=== PATIENT | male | born 1975 | race Caucasian/White ===

== ENCOUNTER 2025-04-29 23:27 | Inpatient (IN) | payer MEDICAID, SELFPAY ==
[2025-04-29 23:28] VITALS: BMI 24.1
[2025-04-30] VITALS (11 sets, daily range): BP systolic 93–141; BP diastolic 55–83; PULSE 76–105; RESP 18–97; TEMP 36.4–37.8; O2SAT 98; BMI 26.7
--- NOTE | 2025-04-30 00:32 | PC.NURSE ---
Pt did not answer when name was called and was not found outside.
--- NOTE | 2025-04-30 00:47 | EKG_ITS ---
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
--- NOTE | 2025-04-30 01:00 | XR_ITS ---
Examination: Duplex scan of the lower extremity, unilateral right Date and time of exam: April 30, 2025, 0126 hours INDICATIONS: Right leg redness swelling and pain beginning 5 days ago Technique: Duplex scan of the extremity veins using B-mode/grayscale imaging and Doppler spectral analysis and color flow Attention is directed to internal echogenicity, compression and augmentation involving these veins, color flow assessment, spectral analysis Findings: Major deep venous structures in the extremity demonstrate normal course and caliber. There is no evidence of deep vein thrombosis. Normal color flow and spectral analysis Impression: Negative for DVT.
[2025-04-30 01:14] LABS: Lactate (Lactic Acid) 3.0 mMol/L (0.4-2.0)
[2025-04-30 01:17] LABS: Basophils # (Auto) 0.0 Thou/mm3 (0.0-0.2); Basophils % (Auto) 0 % (0-2.5); Eosinophils # (Auto) 0.1 Thou/mm3 (0.0-0.5); Eosinophils % (Auto) 1 % (0-10); Hematocrit 45.1 % (41.0-53.0); Hemoglobin 14.9 g/dL (13.5-16.0); Immature Granulocytes Auto 0.06 Thou/mm3 (0.00-0.00); Lymphocytes # (Auto) 2.1 Thou/mm3 (1.0-4.8); Lymphocytes % (Auto) 20 % (10-50); Mean Corpuscular HGB Conc 33.0 g/dl (31.0-37.0); Mean Corpuscular Hemoglobin 28.4 pg (25.0-35.0); Mean Corpuscular Volume 86 fL (80-100); Monocytes # (Auto) 0.8 Thou/mm3 (0.0-0.8); Monocytes % (Auto) 7 % (0-12); Neutrophils # (Auto) 7.5 Thou/mm3 (1.8-7.7); Neutrophils % (Auto) 72 % (37-80); Nucleated Red Blood Cell # 0.00 Thou/mm3 (0.00-0.00); Nucleated Red Blood Cell % 0 /100 WBC (0); Platelet Count 184 Thou/mm3 (140-440); RDW Standard Deviation 41.2 fL (35.1-43.9); Red Blood Count 5.24 Miln/mm3 (4.50-5.90); White Blood Count 10.5 Thou/mm3 (3.8-10.6)
[2025-04-30] MEDS: PIPER/TAZO 3.375 GM PREMIX 3.375 GM/50 ML BAG IV ×3 (01:25→22:45)
[2025-04-30] MEDS: RINGERS LACTATED 1000 ML 1,000 ML 999 ML IV ×2 (01:26→10:54)
--- NOTE | 2025-04-30 01:35 | PD.EDEXREM ---
ED Extremity Problem RME/HPI General Chief complaint: Extremity Problem,Nontraumatic Stated complaint: RIGHT LEG WARM AND SWOLLEN Time Seen by Provider: 04/30/25 00:03 Arrival date/time: 04/29/25 23:27 RME / HPI RME / HPI Narrative: DR. TY MAIN ED EVALUATION: Patient presenting progressive painful swelling extending from the right foot to the medial thigh of several days duration. Reports subjective fever, denies chills, vomiting, or diarrhea. Patient reports that his dog had scratched his foot prior to onset of symptoms. Notes similar symptoms which resulted in sepsis. PMH: Recurrent cellulitis/Sepsis, HIV no longer under treatment, Anxiety, Depression, Methamphetamine use PSH: Non-contributory Allergies: NKDA Social: Denies illicit drug abuse, rare alcohol consumption, reduce tobacco use Related Data Home Medications ?Medication ?Instructions ?Recorded ?Confirmed gabapentin 300 mg tablet 300 mg PO QDAY 01/12/22 01/12/22 prazosin 1 mg capsule 1 mg PO QPM 01/12/22 01/12/22 risperidone 2 mg tablet 2 mg PO QDAY 01/12/22 01/12/22 sertraline 100 mg tablet 100 mg PO BID 01/12/22 01/12/22 Allergies Allergy/AdvReac Type Severity Reaction Status Date / Time No Known Allergies Allergy Unverified 03/23/23 11:35 Review of Systems Review of Systems Systems Reviewed: All systems reviewed, normal except as documented Past Medical History Past Medical History CARDIAC: Positive Cellulitis PSYCHO/SOCIAL: Positive Recreational Drug Use, Depression and Anxiety OTHER HISTORY: Positive Human Immunodeficiency Virus (HIV) Family History FAMILY HISTORY: Positive Family Psychiatric Problems and Family Cancer Surgical History SURGICAL: Positive Abdominal Surgery Social History SMOKING STATUS: Current every day smoker SUBSTANCE USE: methamphetamine ALCOHOL: Current ED Exam Narrative Physical exam: GEN. APPEARANCE: The patient is alert awake oriented X-3 under no distress, lying down comfortably, does not look ill/toxic. Patient has good eye contact. Patient is cooperative. Mildly tachycardic. VITALS: All vitals were reviewed and the pulse ox is 98%, which is normal according to my interpretation HEENT: Normocephalic, atraumatic and nontender. Pupils are equal and reactive. Oral mucosa is moist. NECK: Supple, nontender, no meningismus, no JVD. There is no thyromegaly and no lymphadenopathy. CHEST: Nontender on palpation no deformity and no crepitus. CARDIOVASCULAR: Mildly tachycardic, no murmur or gallop rub or extra beats. LUNGS: Clear to auscultation bilaterally with symmetrical chest rise. No laboring tachypnea or wheezing. No intercostal subcostal retraction. No rales and no rhonchi. ABDOMEN: Soft, flat, nontender to palpation, no guarding or rebound tenderness. There are no abnormal masses palpated. No pulsatile masses or bruits. Active and normal bowel sounds. EXTREMITIES: RLE: Patches of erythema with scattered violaceous hue extending from the right ankle to the medial thigh, 2+ circumferential edema extending from the right ankle to the knee, distal function intact. SKIN: Warm and dry, no rashes noted. MUSCULOSKELETAL: No lumbar or midline bony tenderness. There is no CVA tenderness. No paraspinal muscle spasm or tenderness. NEURO: Cranial nerves II through XII grossly intact. There are no focal neurologic deficits noted. GCS is 15 PSYCHIATRIC: Patient is in normal mood and affect, cooperative. LYMPHATICS: No major lymphadenopathy noted. Course Quality Measures none Orders Category Date Time Status COVID-19 Screening Questionnaire NOW Care 04/30/25 01:39 Active Beaming Inspector STAT Care 04/30/25 00:47 Active Continuous Pulse Oximetry STAT Care 04/30/25 00:47 Completed EKG (ED ONLY) *Do not use* NOW Care 04/30/25 00:47 Completed In and Out Catheter X1PRN Care 04/30/25 00:47 Completed Insert IV NOW Care 04/30/25 00:47 Active Strict Intake and Output Routine Care 04/30/25 00:47 Ordered EKG (ED Only) Stat Exams 04/30/25 00:47 Draft US venous doppler LE RT Stat Exams 04/30/25 01:00 Taken Blood Culture (Lab) Stat Lab 04/30/25 01:09 Received CBC Stat Lab 04/30/25 01:00 Completed Comprehensive Metabolic Panel Stat Lab 04/30/25 01:00 Completed Lactate (Lactic Acid) Stat Lab 04/30/25 01:00 Completed Lactic Acid, 3 HR Stat Lab 04/30/25 04:13 Ordered Procalcitonin Stat Lab 04/30/25 01:00 Completed Prothrombin Time with INR Stat Lab 04/30/25 01:00 Completed Urinalysis, C/S if Indicated Stat Lab 04/30/25 02:54 Completed Piper/Tazo 3.375 gm Premix [Zosyn] Med 04/30/25 00:47 Discontinued 3.375 gm in 50 ml IV X1 Ringers Lactated 1000 ml [Lactated Ringers] 1,000 ml Med 04/30/25 00:47 Discontinued IV 999 mls/hr Vancomycin Inj 1,000 mg Med 04/30/25 02:15 Discontinued Sodium Chloride 0.9% 250 ml [Ns] 250 ml IV X1 Vancomycin Pharmacy to Dose Med 04/30/25 09:00 Pending 1 each IV QDAY Vital Signs Vital signs: Vital Signs Temperature 98.5 F 04/30/25 00:39 Pulse Rate 105 H 04/30/25 00:39 Respiratory Rate 18 04/30/25 00:39 Blood Pressure 141/83 H 04/30/25 00:39 Pulse Oximetry (%) 98 04/30/25 00:39 Oxygen Delivery Method Room Air 04/30/25 00:39 Extremity Problem MDM Narrative MDM Narrative:: Scribe Attestation: IKinsey am scribing for and in the presence of Dr. Martinez. Provider Notation: Although this document has been carefully reviewed, there may still be some phonetic and other typographical errors. These errors are purely grammatical due to imperfections in the software program and should not be construed in any way to compromise the substance of the patient's medical care during this visit. Patient presenting progressive painful swelling extending from the right foot to the medial thigh of several days duration. Reports subjective fever, denies chills, vomiting, or diarrhea. Please see PE findings. Laboratory markers, including CBC and serum chemistries, demonstrated WBC of 10.5. Hemoglobin of 14.9 and platelet count of 184, no left shift or associated bandemia. Serum chemistries essentially unremarkable. UA demonstrated glucosuria and hematuria, although no bacteriuria. Patient received dual-ABX therapy and remained hemodynamically stable. Of concern is patient's immunocompromised status and rapidly progressive cellulitis. Hospitalist consulted for possible admission. Final diagnosis includes cellulitis of the RLE. Patient data External records reviewed:: [facility] previous records (Reviewed prior ED records from 03/23/23. Patient was seen for Cellulitis of right lower limb.) Clinical information provided by:: patient Social determinants that could affect healthcare access:: alcohol use (Methamphetamine use) Patient has the following chronic illnesses:: Cellulitis, HIV, Anxiety, Depression, Methamphetamine use How is presenting disease/condition affected by chronic disease/condition?: exacerbated by Evaluation data The following diagnostics were reviewed and interpreted by me:: lab results, radiology exam(s) and EKG tracing(s) (EKG at 01:09 shows normal sinus rhythm at 86, normal axis, no ventricular ectopy, no ST segment changes, per my interpretation.) Lab and/or radiology exams considered but not ordered:: None Interpretation Summary: RADIOLOGY Venous Doppler: Findings: Waite scale, color flow and spectral Doppler evaluation of the right lower extremity deep venous system was performed. Patient was tender to compression at the greater saphenous vein confluence. The common femoral, femoral, popliteal and calf veins are patent and compressible. Normal augmentation and respiratory variation are noted. There is no evidence of occlusive or nonocclusive thrombus. There are no fluid collections. Impression: No sonographic evidence of deep venous thrombosis in the right lower extremity. Medications / Prescriptions Medications or Prescriptions considered but not ordered:: None Medication administrations:: Medication Administration History Pharmacy Consult (Vancomycin Pharmacy To Dose 1 Each Each) 1 each IV QDAY [facility] Stop: 05/30/25 08:59 Discontinued Medications Lactated Ringer's (Lactated Ringers) 1,000 mls @ 999 mls/hr IV .Q1H1M ONE Stop: 04/30/25 01:47 Last Infusion: 04/30/25 02:50 Dose: Infused Documented By: Admin: 04/30/25 01:26 Dose: 999 mls/hr Documented By: DALTON Piperacillin/Tazobactam/Dextrose (Zosyn) 3.375 gm in 50 mls @ 100 mls/hr IV X1 ONE Stop: 04/30/25 01:16 Last Infusion: 04/30/25 01:55 Dose: Infused Documented By: Admin: 04/30/25 01:25 Dose: 100 mls/hr Documented By: DALTON Vancomycin HCl 1,000 mg/ (Sodium Chloride) 250 mls @ 120 mls/hr IV X1 ONE Stop: 04/30/25 04:19 Last Admin: 04/30/25 02:51 Dose: 120 mls/hr Documented By: DALTON See above if any Consultations Consultation(s) initiated? (list below): Yes Consultation #1 (Physician, Specialty, Details): Discussed with resident physician for admission. Reviewed the patient?s HPI, PMHx, lab and/or radiology results. Discussed treatment plan. Will consult an admission to the hospitalist. Time: 04:33 Diagnosis Extremity Problem Differential Diagnosis: gout, cellulitis, superficial thrombophlebitis, lower extremity edema and deep vein thrombosis of lower extremity Most likely diagnosis given after review of the tests above:: Cellulitis of RLE Admission Indicated Admission indicated?: indicated Explain why admission is indicated or not indicated:: Cellulitis of RLE Admission Request Was there a request for admission?: Yes Admission Attestation Admission request attestation: Discussed case with [] from Hospitalist service regarding admission. Discussed patients ED course, exam findings, labs, and radiology results. The Hospitalist [agrees,declines] to accept the patient for admission. Disposition Plan Disposition Plan: Admit Critical Care Time Critical Care Time Critical Care Time: No Discharge Plan Plan Patient Disposition: Admit Acute Care w/in Hospital Prescriptions/Referrals Prescriptions/Med Rec: No Action prazosin 1 mg Capsule 1 mg PO QPM sertraline 100 mg Tablet 100 mg PO BID risperidone 2 mg Tablet 2 mg PO QDAY gabapentin 300 mg Tablet 300 mg PO QDAY Referrals: No Primary/Family,Physician [Primary Care Provider] - In 1 week Problem List Clinical Impression: Cellulitis of right lower extremity Patient/Caregiver Discharge Instructions Print Language: Czech Stand Alone Forms: Mar[facility] Award Info., Patient Portal Info Letter
[2025-04-30 01:39] LABS: INR 1.0 (0.9-1.3); Prothrombin Time 10.8 Seconds (9.0-12.2)
[2025-04-30 01:47] LABS: Alanine Aminotransferase 21 U/L (10-49); Albumin, Serum 4.0 gm/dL (3.5-5.0); Albumin/Globulin Ratio 1.7 (1.2-2.2); Alkaline Phosphatase 64 U/L (46-116); Anion Gap 9 (7-16); Aspartate Amino Transferase 15 U/L (0-34); BUN/Creatinine Ratio 12 Ratio (12-20); Bilirubin,Total 0.5 mg/dL (0.3-1.2); Blood Urea Nitrogen 15 mg/dL (9-23); Calcium 8.7 mg/dL (8.3-10.6); Calcium (Corrected) 8.7 mg/dL (8.5-10.1); Carbon Dioxide 26.2 mMol/L (20.0-31.0); Chloride 101 mMol/L (98-107); Creatinine (Component) 1.3 mg/dL (0.6-1.3); Estimated Creatinine Clearance 71.6 mL/min (>60); Globulin 2.3 gm/dL (2.3-3.5); Glucose 261 mg/dL (74-106); Osmolality,Calculated 281 (275-295); Potassium 4.0 mMol/L (3.4-5.1); Procalcitonin 0.47 ng/ml (0.0-0.49); Sodium 136 mMol/L (136-145); Total Protein 6.3 gm/dL (5.7-8.2); eGFR > 60 See Note
--- NOTE | 2025-04-30 02:21 | PRELIM_ITS ---
Right lower extremity venous Doppler ultrasound. April 30, 2025 at 0126 hours Clinical history: Rule out deep vein thrombosis. Findings: Waite scale, color flow and spectral Doppler evaluation of the right lower extremity deep venous system was performed. Patient was tender to compression at the greater saphenous vein confluence. The common femoral, femoral, popliteal and calf veins are patent and compressible. Normal augmentation and respiratory variation are noted. There is no evidence of occlusive or nonocclusive thrombus. There are no fluid collections. Impression: No sonographic evidence of deep venous thrombosis in the right lower extremity. Report Electronically Signed By: Hudson Crain 04/30/2025 2:21:23 AM [EST]
[2025-04-30] MEDS: Vancomycin Inj 1,000 MG in SODIUM CHLORIDE 0.9% 250 ML 250 ML 120 MG IV (02:51)
[2025-04-30 03:09] LABS: Collection Type, Urine Clean Catch; Squamous Epithelial Cell,Urine 0 /hpf (0-5)
[2025-04-30 03:18] LABS: Bilirubin,Urine Negative (Negative); Blood,Urine 1+ (Negative); Clarity,Urine Clear (Clear/Hazy); Color,Urine Lt-Yellow (Lt Yel-Yel); Culture Indicated,Urine Not Indicated; Glucose, Urine 3+ (Negative); Ketones,Urine Negative (Negative); Leukocyte Esterase,Urine Negative (Negative); Nitrite,Urine Negative (Negative); PH,Urine 6.0 (5.0-7.0); Protein,Urine Negative (Neg - Trace); RBC,Urine 3 /hpf (0-3); Specific Gravity,Urine 1.016 (1.001-1.035); Urobilinogen,Urine Negative mg/dL (0.0-1.0); WBC,Urine < 1 /hpf (0-5)
[2025-04-30 03:19] LABS: Sperm,Urine Present
[2025-04-30 04:13] LABS: Reflex Lactate? Y
[2025-04-30 04:44] LABS: Lactic Acid, 3 HR 0.7 mMol/L (0.4-2.0)
--- NOTE | 2025-04-30 05:29 | ESHP_ITS ---
<Statement entered by Juan Cowan MD - 04/30/25 06:12> I have discussed and was present for the essential components of the history, physical examination, diagnosis, and treatment plan with the resident. I agree with the patient's care as documented by the resident and amended herein by me. Juan Cowan MD FACP. Documentation for date of: 04/30/25 HPI History of Present Illness History of present illness: 49-year-old male with a history of HIV (diagnosed 10 years ago, on Biktarvy, but takes it intermittently) presenting with worsening painful swelling that has extended from his right foot to the medial thigh over the past 3 days. He reports a subjective fever but denies chills, vomiting, or diarrhea. The patient mentions that the swelling began after being scratched by his friend's dog. The dog is vaccinated. The patient is unsure of his tetanus status, but he believes he is up-to-date with other vaccinations. He notes a history of similar symptoms, which previously resulted in sepsis. The patient was previously followed by Dr. Ferreira, though he has not seen him in several years. ED course: Initial vitals include T 98.5, BP 141/83, HR 105, RR 18, O2 sat 98% room air. CBC showed no elevation in WBC. CMP showed lactic acid 3 with repeat 0.7. LFTs within normal. Creatinine 1.3. Right extremity venous Doppler ultrasound showed no sonographic evidence of deep venous thrombosis. Past medical history: As stated above. Allergies: NKDA Family history: Noncontributory. Social history: Uses meth, according to the patient last used 1 year ago Patient admitted for cellulitis of right leg. Review of Systems Review of Systems Narrative Review of Systems: All systems reviewed negative unless stated otherwise above. Exam Vital Signs Temp Pulse Resp BP Pulse Ox O2 Del Method 98.6 F 87 26 H 126/74 98 Room Air 04/30/25 03:43 04/30/25 05:20 04/30/25 05:20 04/30/25 03:43 04/30/25 03:43 04/30/25 00:39 Narrative Exam General: AOx3, in mild distress, able to speak full sentences, Maltese-speaking HEENT: NC/AT, mucous membranes moist, bilateral sclera anicteric Cardiovascular: regular rate and rhythm, S1/S2 present, no murmurs appreciated Pulmonary: clear to auscultation bilaterally, no rales/rhonchi/wheezes Abdominal: soft, non-tender, non-distended, no rebound/guarding, normal bowel sounds present Musculoskeletal: Right lower extremity showed patches of erythema with scattered violaceous hue extending from the right ankle to the medial thigh, 2+ circumferential edema extending from the right ankle to the knee, distal function intact. Skin: warm and dry, intact, no rashes, Neuro: CN II-XII intact, no focal deficits Results: Labs 04/30/25 01:00 04/30/25 01:00 Labs: Short CBC 04/30/25 Range/Units 01:00 WBC 10.5 (3.8-10.6) Thou/mm3 Hgb 14.9 (13.5-16.0) g/dL Hct 45.1 (41.0-53.0) % Plt Count 184 (140-440) Thou/mm3 BMP 04/30/25 01:00 Sodium 136 Potassium 4.0 Chloride 101 Carbon Dioxide 26.2 BUN 15 Creatinine 1.3 Glucose 261 H Calcium 8.7 Liver Function 04/30/25 Range/Units 01:00 Total Bilirubin 0.5 (0.3-1.2) mg/dL AST 15 (0-34) U/L ALT 21 (10-49) U/L Alkaline Phosphatase 64 (46-116) U/L Albumin 4.0 (3.5-5.0) gm/dL Urine 04/30/25 Range/Units 02:54 Urine Color Lt-Yellow (Lt Yel-Yel) Urine Clarity Clear (Clear/Hazy) Urine pH 6.0 (5.0-7.0) Ur Specific Mazon 1.016 (1.001-1.035) Urine Protein Negative (Neg - Trace) Urine Glucose (UA) 3+ A (Negative) Quality Measures Quality Measures none Medications Home Medications and Allergies Home Medications ?Medication ?Instructions ?Recorded ?Confirmed ?Type gabapentin 300 mg tablet 300 mg PO QDAY 01/12/22 0809/30 History prazosin 1 mg capsule 1 mg PO QPM 01/12/22 2 History risperidone 2 mg tablet 2 mg PO QDAY 01/12/22 History sertraline 100 mg tablet 100 mg PO BID 01/12/2201/12 History Allergies Allergy/AdvReac Type Severity Reaction Status Date / Time No Known Allergies Allergy Unverified 03/23/23 11:35 Visit Medications Acetaminophen (Acetaminophen 325 Mg Tablet) 650 mg PO Q6H PRN PRN Reason: PAIN 1- 3 OR FEVER > 100.4 Stop: 05/30/25 05:06 Doxycycline Hyclate (Doxycycline 100 Mg Tablet) 100 mg PO BID [facility] Stop: 05/07/25 08:59 Heparin Sodium (Porcine) (Heparin Sod Inj 5000 Unit/Ml Vial) 5,000 unit SC Q8HR TERESO Stop: 05/14/25 05:59 Morphine Sulfate (Morphine Sulf Inj 4 Mg/Ml Vial) 2 mg IVP Q4HR PRN PRN Reason: PAIN SCALE 7-10 (Severe Stop: 05/05/25 05:06 Ondansetron HCl (Ondansetron Inj 2 Mg/Ml Inj 2 Ml) 4 mg IVP Q6H PRN; Protocol PRN Reason: NAUSEA OR VOMITING Stop: 05/30/25 05:06 Pharmacy Consult (Vancomycin Pharmacy To Dose 1 Each Each) 1 each IV QDAY [facility] Stop: 05/30/25 08:59 Sennosides (Senna Tablet) 1 tab PO QDAY PRN; Protocol PRN Reason: constipation Stop: 05/30/25 05:06 Discontinued Medications Lactated Ringer's (Lactated Ringers) 1,000 mls @ 999 mls/hr IV .Q1H1M ONE Stop: 04/30/25 01:47 Last Infusion: 04/30/25 02:50 Dose: Infused Piperacillin/Tazobactam/Dextrose (Zosyn) 3.375 gm in 50 mls @ 100 mls/hr IV X1 ONE Stop: 04/30/25 01:16 Last Infusion: 04/30/25 01:55 Dose: Infused Vancomycin HCl 1,000 mg/ (Sodium Chloride) 250 mls @ 120 mls/hr IV X1 ONE Stop: 04/30/25 04:19 Last Admin: 04/30/25 02:51 Dose: 120 mls/hr Assessment & Plan Plan 49-year-old male with a history of HIV (diagnosed 10 years ago, on Biktarvy, but takes it intermittently) presenting with worsening painful swelling that has extended from his right foot to the medial thigh over the past 3 days. Patient admitted for cellulitis of right leg. #Cellulitis, right leg #History of HIV, active Presenting with worsening painful swelling that has extended from his right foot to the medial thigh over the past 3 days. Patient reports a subjective fever but denies chills, vomiting, or diarrhea. Patient mentions swelling began after being scratched by his friend's dog. The dog is vaccinated. Patient is unsure of his tetanus status, but he believes he is up-to-date with other vaccinations. On exam right lower extremity showed patches of erythema with scattered violaceous hue extending from the right ankle to the medial thigh, 2+ circumferential edema extending from the right ankle to the knee, distal function intact. Afebrile No WBC elevation In ED patient received Zosyn 3.375 g IV and vancomycin IV x 1 Plan ? Started cefazolin 1 g IV every 8 hours ? Follow-up blood cultures ? Follow-up ESR, CRP ? HIV viral load ordered, send out ? Day team to consider consulting Dr Lane for further recommendation Health Maintenance: Diet: Regular GI prophylaxis: None DVT prophylaxis: Heparin 5000u SC every 8 hours Antibiotics: Cefazolin 1 g IV every 8 hours CODE STATUS: [facility] with my attending Dr. Cowan, and senior resident, Dr. Jonah Thrasher MD PGY-1
[2025-04-30] MEDS: HEPARIN SOD INJ 5000 UNIT/ML VIAL SC ×2 (06:12→18:15)
[2025-04-30] MEDS: ceFAZolin/D5W 1 GM IVPB 1 GM/50 ML BAG IV (06:12)
[2025-04-30 06:28] LABS: C-Reactive Protein 15.8 mg/dL (0.0-0.9)
[2025-04-30 07:02] LABS: Sed Rate (ESR) 30 mm/hr (0-20)
[2025-04-30] MEDS: ACETAMINOPHEN 325 MG TABLET 650 MG PO (07:33)
[2025-04-30] MEDS: VANCOMYCIN/NS 750 MG IVPB 750 MG/150 ML BAG 120 MG IV ×2 (09:07→21:20)
[2025-04-30] MEDS: PIPER/TAZO INJ 4.5 GM in SODIUM CHLORIDE 0.9% (POP) 100 ML IV (11:37)
[2025-04-30 12:01] LABS: Amphetamine/Methamp Scrn,U Positive (Negative); Barbiturate Screen,Urine Negative (Negative); Benzodiazepines Screen,Urine Negative (Negative); Benzoylecgonine Screen, Ur Negative (Negative); Fentanyl Screen,Urine Negative (Negative); Opiate Screen,Urine Negative (Negative); THC Screen,Urine Negative (Negative)
[2025-04-30 12:38] LABS: HIV 1/2 Confirmation* See Sep Rpt
[2025-04-30 12:58] LABS: Hepatitis A Antibody IgM Non Reactive (Non React); Hepatitis B Core Antibody IgM Non Reactive (Non React); Hepatitis B Surface Antigen Non Reactive (Non React); Hepatitis C Antibody Non Reactive (Non React)
--- NOTE | 2025-04-30 13:40 | PC.SS ---
SS met with patient regarding his d/c plan. Pt is alert/oriented. Pt was admitted for Cellulitis. Pt confirmed demographic and contact information is correct on facesheet. Pt states he is homeless and resides in his car. Pt ambulates independently without assistance or DME. Pt is ok with all ADLs. Patient?s pharmacy of choice is [facility] on [address]. Pt named hsi sister, Wendy Beasley medical decision maker if he is unable. Pt states he is in the process of transitioning his health insurance from out of the area to [facility]. Pt states he is not diabetic and is not on dialysis. SS spoke to pt about homeless shelters in the area ([facility]) and pt is receptive to community resources. D/C plan: [facility] Next of Kin: Wendy Beasley, sister, phone# [phone] PCP: Dr. Trotter from [facility] in [facility]. Address: Correct on facesheet
[2025-04-30] MEDS: BIKTARVY 50-200-25 MG PO (15:59)
--- NOTE | 2025-04-30 16:49 | ESPR_ITS ---
<Statement entered by Atul Manuel MD - 05/02/25 18:09> Patient was seen and examined at bedside. I agree on the assessment and plan on this note as documented by resident Dr Michael Aldana DO PGY1. 49-year-old male with past medical history as below admitted for right leg cellulitis does have history of HIV, patient reports noncompliance with Biktarvy, antibiotic treatment regimen was changed to vancomycin and Zosyn for broader coverage due to underlying extensive cellulitis, will consult infectious disease specialist Dr. Ferreira will obtain CT scan of the right leg to assess for any deep abscess/bone involvement. Case discussed with attending Dr. Abdon Manuel MD PGY-2 Documentation for date of: 04/30/25 Subjective Subjective Interval history: Patient was seen and examined at bedside. No acute events took place overnight. While patient states that he took Biktarvy this morning, he also says that he took it only once during the past month, and for a total of nearly 30 days during the past year for issues with insurance coverage, provider availability, and homelessness. Patient admits to subjective fevers before ED presentation. He had temperature 100 F this morning for which he received Tylenol 650 mg. Right leg despite being erythematous and edematous, patient does not express to be in pain at. He states that his symptoms began 3 days ago and coincided with a scratch from a friend's dog. He also has had cellulitis 3 times before, the latest episode was triggered by a cat scratch. Exam Vital Signs Temp Pulse Resp BP Pulse Ox O2 Del Method 97.6 F 82 18 93/55 L 98 Room Air 04/30/25 16:00 04/30/25 16:00 04/30/25 16:00 04/30/25 16:00 04/30/25 16:04/30/25 16:00 Narrative Exam General: AOx3, in mild distress, able to speak full sentences, [place]-speaking HEENT: NC/AT, mucous membranes moist, bilateral sclera anicteric Cardiovascular: regular rate and rhythm, S1/S2 present, no murmurs appreciated Pulmonary: clear to auscultation bilaterally, no rales/rhonchi/wheezes Abdominal: soft, non-tender, non-distended, no rebound/guarding, normal bowel sounds present Musculoskeletal: Right lower extremity showed patches of erythema with scattered violaceous hue extending from the right ankle to the medial thigh, 2+ circumferential edema extending from the right ankle to the knee, distal function intact. Skin: warm and dry, intact, no rashes, Neuro: CN II-XII intact, no focal deficits Objective Labs 05/01/25 04:30 05/01/25 04:30 Labs: Laboratory Results - last 24 hr 04/30/25 04/30/25 04/30/25 01:00 02:54 04:35 WBC 10.5 RBC 5.24 Hgb 14.9 Hct 45.1 MCV 86 MCH 28.4 MCHC 33.0 RDW Std Deviation 41.2 Plt Count 184 Neut % (Auto) 72 Lymph % (Auto) 20 [place] % (Auto) 7 Eos % (Auto) 1 Baso % (Auto) 0 Neut # (Auto) 7.5 Lymph # (Auto) 2.1 [place] # (Auto) 0.8 Eos # (Auto) 0.1 Baso # (Auto) 0.0 Immature Gran # (Auto) 0.06 H Absolute Nucleated RBC 0.00 Immature Gran % 1 H Nucleated RBC % 0 ESR 30 H PT 10.8 INR 1.0 Sodium 136 Potassium 4.0 Chloride 101 Carbon Dioxide 26.2 Anion Gap 9 BUN 15 Creatinine 1.3 Estim Creat Clear Calc 71.6 eGFR > 60 BUN/Creatinine Ratio 12 Glucose 261 H Calculated Osmolality 281 Lactic Acid 3.0 H 0.7 Calcium 8.7 Corrected Calcium 8.7 Total Bilirubin 0.5 AST 15 ALT 21 Alkaline Phosphatase 64 C-Reactive Prot, Quant 15.8 H Total Protein 6.3 Albumin 4.0 Globulin 2.3 Albumin/Globulin Ratio 1.7 Procalcitonin 0.47 Ur Collection Type Clean Catch Urine Color Lt-Yellow Urine Clarity Clear Urine pH 6.0 Ur Specific [employer] 1.016 Urine Protein Negative Urine Glucose (UA) 3+ A Urine Ketones Negative Urine Blood 1+ A Urine Nitrite Negative Urine Bilirubin Negative Urine Urobilinogen (Auto) Negative Ur Leukocyte Esterase Negative Urine RBC 3 Urine WBC < 1 Ur Squamous Epith Cells 0 Urine Bacteria None Urine Sperm Present A Ur Culture Indicated? Not Indicated Urine Opiates Screen Urine Fentanyl Screen Ur Barbiturates Screen U Amphetamin/Meth Scrn U Benzodiazepines Scrn U Cocaine Metab Screen U Marijuana (THC) Screen Hepatitis A IgM Ab Hep Bs Antigen Hep B Core IgM Ab Hepatitis C Antibody HIV 1&2 Antibody Rapid 04/30/25 04/30/25 11:00 11:25 WBC RBC Hgb Hct MCV MCH MCHC RDW Std Deviation Plt Count Neut % (Auto) Lymph % (Auto) [place] % (Auto) Eos % (Auto) Baso % (Auto) Neut # (Auto) Lymph # (Auto) [place] # (Auto) Eos # (Auto) Baso # (Auto) Immature Gran # (Auto) Absolute Nucleated RBC Immature Gran % Nucleated RBC % ESR PT INR Sodium Potassium Chloride Carbon Dioxide Anion Gap BUN Creatinine Estim Creat Clear Calc eGFR BUN/Creatinine Ratio Glucose Calculated Osmolality Lactic Acid Calcium Corrected Calcium Total Bilirubin AST ALT Alkaline Phosphatase C-Reactive Prot, Quant Total Protein Albumin Globulin Albumin/Globulin Ratio Procalcitonin Ur Collection Type Urine Color Urine Clarity Urine pH Ur Specific [employer] Urine Protein Urine Glucose (UA) Urine Ketones Urine Blood Urine Nitrite Urine Bilirubin Urine Urobilinogen (Auto) Ur Leukocyte Esterase Urine RBC Urine WBC Ur Squamous Epith Cells Urine Bacteria Urine Sperm Ur Culture Indicated? Urine Opiates Screen Negative Urine Fentanyl Screen Negative Ur Barbiturates Screen Negative U Amphetamin/Meth Scrn Positive A U Benzodiazepines Scrn Negative U Cocaine Metab Screen Negative U Marijuana (THC) Screen Negative Hepatitis A IgM Ab Non Reactive Hep Bs Antigen Non Reactive Hep B Core IgM Ab Non Reactive Hepatitis C Antibody Non Reactive HIV 1&2 Antibody Rapid See Comment Quality Measures Quality Measures none Assessment & Plan Assessment Current Active Medications: Generic Name Dose Route Start Last Admin Trade Name Freq PRN Reason Stop Dose Admin Acetaminophen 650 mg 04/30/25 05:07 04/30/25 07:33 Acetaminophen 325 Mg Tablet PO 05/30/25 05:06 650 mg Q6H PRN Administration PAIN 1- 3 OR FEVER > 100.4 Biktarvy 50-200-25 0 ea 04/30/25 15:15 04/30/25 15:59 Mg PO 05/30/25 08:59 1 tablet DAILY TERESO Administration Heparin Sodium (Porcine) 5,000 unit 04/30/25 18:00 Heparin Sod Inj 5000 Unit/Ml Vial SC 05/14/25 17:59 Q12HR TERESO Vancomycin/Sodium Chloride 750 mg in 150 mls @ 120 mls/hr 04/30/25 10:00 04/30/25 09:07 Vancomycin/Ns 750 Mg Ivpb IV 05/07/25 09:59 120 mls/hr BID@1000,2200 TERESO Administration Piperacillin/Tazobactam/Dextrose 3.375 gm in 50 mls @ 12.5 mls/hr 04/30/25 14:00 04/30/25 14:27 Zosyn IV 05/07/25 13:59 12.5 mls/hr Q8HR TERESO Administration Protocol Morphine Sulfate 2 mg 04/30/25 05:07 Morphine Sulf Inj 4 Mg/Ml Vial IVP 05/05/25 05:06 Q4HR PRN PAIN SCALE 7-10 (Severe Ondansetron HCl 4 mg 04/30/25 05:07 Ondansetron Inj 2 Mg/Ml Inj 2 Ml IVP 05/30/25 05:06 Q6H PRN NAUSEA OR VOMITING Protocol Pharmacy Consult 1 each 04/30/25 09:00 Vancomycin Pharmacy To Dose 1 Each Each IV 05/30/25 08:59 QDAY PRN CONSULT Sennosides 1 tab 04/30/25 05:07 Senna Tablet PO 05/30/25 05:06 QDAY PRN constipation Protocol Plan 49-year-old male with a history of HIV (diagnosed 10 years ago, on Biktarvy, but takes it intermittently) presenting with worsening painful swelling that has extended from his right foot to the medial thigh over the past 3 days. Patient admitted for cellulitis of right leg. #Cellulitis, right leg #History of HIV, active Presenting with worsening painful swelling that has extended from his right foot to the medial thigh over the past 3 days. Patient reports a subjective fever but denies chills, vomiting, or diarrhea. Patient mentions swelling began after being scratched by his friend's dog. The dog is vaccinated. Patient is unsure of his tetanus status, but he believes he is up-to-date with other vaccinations. On exam right lower extremity showed patches of erythema with scattered violaceous hue extending from the right ankle to the medial thigh, 2+ circumferential edema extending from the right ankle to the knee, distal function intact. Afebrile No WBC elevation In ED patient received Zosyn 3.375 g IV and vancomycin IV x 1 PT 10.8, INR 1.0 WNL. Hep A IgM Ab, Hep B surface antigen and core IgM antibody, and Hep C all non reactive. Plan ? Switched choice of antibiotics to vancomycin dosed by pharmacy and Zosyn IV 3.375g ? Follow-up blood cultures ? Follow-up ESR, CRP ? HIV viral load ordered, send out ? Day team to consider consulting Dr Lane for further recommendation Health Maintenance: Diet: Regular GI prophylaxis: None DVT prophylaxis: Heparin 5000u SC every 12 hours Antibiotics: Cefazolin 1 g IV every 8 hours CODE STATUS: Full Disposition: [facility] This case was discussed with my attending physician, Dr. Leonardo, and senior resident, Dr Manuel. Michael Aldana, DO PGY I Disclaimer: This note was dictated by speech recognition. Minor errors in carpet sewing machine operator may be present due to voice recognition software. Attending Provider Attestation/Addendum I have seen and examined the patient. I was physically present for the vines portions of the services provided including history, physical exam, diagnosis, treatment plans and orders. I agree with assessment and plan of care as documented by residents. Even though this this note was carefully revised there may still be minor errors in carpet sewing machine operator due to voice recognition software. Abdon Leonardo MD
--- NOTE | 2025-04-30 16:50 | PC.NURSE ---
pt home medication Biktarvy sent to pharmacy to be verified to be administered to pt during hospital stay
--- NOTE | 2025-04-30 17:33 | XR_ITS ---
Examination: CT right lower extremity with intravenous contrast, 2-D sagittal reconstructions. 2-D coronal reconstructions. 3-D reconstructions. Date and time of exam: April 30, 2025, 1727 hours INDICATIONS: Right lower leg redness swelling and pain beginning 1 week ago CTDI: vol (mGy): 11.1 DLP: (mGycm): 326 Technique: Multiple 1.25 mm axial sections of the right lower extremity with 60 cc Isovue-370 have been obtained. 2-D sagittal and coronal reconstructions have been obtained. 3-D reconstructions have been obtained. Low dose protocols were performed. One or more of the following dose reduction techniques were used; automated exposure control, adjustment of the mA and/or KV according to patient size, use of iterative reconstruction technique. Findings: Inflammatory response around right groin lymph nodes extending to the skin in the upper anterior thigh Cellulitis pattern extends along the medial thigh and involves the lateral lower leg predominantly with skin thickening No abscess No cortical bone destruction involving femur tibia fibula or bones of the foot Right common femoral superficial femoral popliteal arteries intact as well as trifurcation arteries below the knee No filling defects in the deep venous system noted IMPRESSION: Cellulitis in the right groin, medial thigh and lateral lower leg as above most severe lateral lower leg No soft tissue abscess Negative for osteomyelitis
[2025-04-30] MEDS: MORPHINE SULF INJ 4 MG/ML VIAL 2 MG IVP (23:58)
[2025-05-01] VITALS: BP 113/62; PULSE 83; RESP 19; TEMP 36.5; O2SAT 98
[2025-05-01 04:00] VITALS: BP 111/55; PULSE 76; RESP 19; TEMP 36.1; O2SAT 98
[2025-05-01] MEDS: PIPER/TAZO 3.375 GM PREMIX 3.375 GM/50 ML BAG IV ×3 (05:11→22:53)
[2025-05-01 05:38] LABS: Basophils # (Auto) 0.0 Thou/mm3 (0.0-0.2); Basophils % (Auto) 0 % (0-2.5); Eosinophils # (Auto) 0.1 Thou/mm3 (0.0-0.5); Eosinophils % (Auto) 1 % (0-10); Hematocrit 41.0 % (41.0-53.0); Hemoglobin 13.9 g/dL (13.5-16.0); Immature Granulocytes Auto 0.05 Thou/mm3 (0.00-0.00); Lymphocytes # (Auto) 2.8 Thou/mm3 (1.0-4.8); Lymphocytes % (Auto) 31 % (10-50); Mean Corpuscular HGB Conc 33.9 g/dl (31.0-37.0); Mean Corpuscular Hemoglobin 29.1 pg (25.0-35.0); Mean Corpuscular Volume 86 fL (80-100); Monocytes # (Auto) 1.2 Thou/mm3 (0.0-0.8); Monocytes % (Auto) 13 % (0-12); Neutrophils # (Auto) 4.9 Thou/mm3 (1.8-7.7); Neutrophils % (Auto) 54 % (37-80); Nucleated Red Blood Cell # 0.00 Thou/mm3 (0.00-0.00); Nucleated Red Blood Cell % 0 /100 WBC (0); Platelet Count 182 Thou/mm3 (140-440); RDW Standard Deviation 40.7 fL (35.1-43.9); Red Blood Count 4.77 Miln/mm3 (4.50-5.90); White Blood Count 9.1 Thou/mm3 (3.8-10.6)
[2025-05-01 06:01] LABS: Alanine Aminotransferase 19 U/L (10-49); Albumin, Serum 3.6 gm/dL (3.5-5.0); Albumin/Globulin Ratio 1.6 (1.2-2.2); Alkaline Phosphatase 57 U/L (46-116); Anion Gap 6 (7-16); Aspartate Amino Transferase 17 U/L (0-34); BUN/Creatinine Ratio 12 Ratio (12-20); Bilirubin,Total 0.7 mg/dL (0.3-1.2); Blood Urea Nitrogen 14 mg/dL (9-23); Calcium 8.5 mg/dL (8.3-10.6); Calcium (Corrected) 8.8 mg/dL (8.5-10.1); Carbon Dioxide 30.5 mMol/L (20.0-31.0); Chloride 104 mMol/L (98-107); Creatinine (Component) 1.2 mg/dL (0.6-1.3); Estimated Creatinine Clearance 77.6 mL/min (>60); Globulin 2.2 gm/dL (2.3-3.5); Glucose 109 mg/dL (74-106); Osmolality,Calculated 280 (275-295); Potassium 4.0 mMol/L (3.4-5.1); Sodium 140 mMol/L (136-145); Total Protein 5.8 gm/dL (5.7-8.2); eGFR > 60 See Note
[2025-05-01 07:49] VITALS: BP 105/57; PULSE 85; RESP 18; TEMP 36.8; O2SAT 98
[2025-05-01] MEDS: BIKTARVY 50-200-25 MG PO (08:26)
[2025-05-01] MEDS: HEPARIN SOD INJ 5000 UNIT/ML VIAL SC ×2 (08:27→20:58)
--- NOTE | 2025-05-01 08:37 | PD.IDPROG ---
Subjective Subjective Interval history: back for cellulitis again. has hiv and I have seen him but not that often records suggest intermittent biktarvy use by pt Exam Vital Signs Temp Pulse Resp BP Pulse Ox O2 Del Method 98.2 F 85 18 105/57 L 98 Room Air 05/01/25 07:49 05/01/25 07:49 05/01/25 07:49 05/01/25 07:49 05/01/25 07:49 05/01/25 07:49 Narrative Exam not seen. I am away this day so will see him sunday Objective - Internal Medicine Labs 05/01/25 04:30 05/01/25 04:30 Labs: Laboratory Results - last 24 hr 04/30/25 04/30/25 05/01/25 11:00 11: 04:30 WBC 9.1 RBC 4.77 Hgb 13.9 Hct 41.0 MCV 86 MCH 29.1 MCHC 33.9 RDW Std Deviation 40.7 Plt Count 182 Neut % (Auto) 54 Lymph % (Auto) 31 [place] % (Auto) 13 H Eos % (Auto) 1 Baso % (Auto) 0 Neut # (Auto) 4.9 Lymph # (Auto) 2.8 [place] # (Auto) 1.2 H Eos # (Auto) 0.1 Baso # (Auto) 0.0 Immature Gran # (Auto) 0.05 H Absolute Nucleated RBC 0.00 Immature Gran % 1 H Nucleated RBC % 0 Sodium 140 Potassium 4.0 Chloride 104 Carbon Dioxide 30.5 Anion Gap 6 L BUN 14 Creatinine 1.2 Estim Creat Clear Calc 77.6 eGFR > 60 BUN/Creatinine Ratio 12 Glucose 109 H D Calculated Osmolality 280 Calcium 8.5 Corrected Calcium 8.8 Total Bilirubin 0.7 AST 17 ALT 19 Alkaline Phosphatase 57 Total Protein 5.8 Albumin 3.6 Globulin 2.2 L Albumin/Globulin Ratio 1.6 Urine Opiates Screen Negative Urine Fentanyl Screen Negative Ur Barbiturates Screen Negative U Amphetamin/Meth Scrn Positive A U Benzodiazepines Scrn Negative U Cocaine Metab Screen Negative U Marijuana (THC) Screen Negative Hepatitis A IgM Ab Non Reactive Hep Bs Antigen Non Reactive Hep B Core IgM Ab Non Reactive Hepatitis C Antibody Non Reactive HIV 1&2 Antibody Rapid See Comment Assessment & Plan A&P Narrative cellulitis leg hiv infection try to get him to take his meds daily labs ok empiric abx ok I am away for a person medical issue today and will see him sunday Time Spent With Patient Time: Total time spent is greater than 50% in coordination of care (as documented) at patient's floor/unit and/or counseling patient:
--- NOTE | 2025-05-01 09:15 | PC.SS ---
Follow up note: On IV antibiotic. Cultures are pending. Pt is possible d/c to [facility].
[2025-05-01 09:31] LABS: Vancomycin,Trough 8.8 mcg/mL (5.0-10.0)
[2025-05-01] MEDS: VANCOMYCIN/WATER 1GM IVPB 200 ML IV ×2 (10:52→21:00)
[2025-05-01 12:00] VITALS: BP 100/57; PULSE 72; RESP 18; TEMP 36.8; O2SAT 98
[2025-05-01 15:49] VITALS: BP 108/56; PULSE 76; RESP 18; TEMP 36.8; O2SAT 98
--- NOTE | 2025-05-01 18:16 | ESPR_ITS ---
<Statement entered by Nazario De Jesus MD - 05/02/25 15:51> Patient seen and examined at bedside. I discussed and supervised with the research intern physician who took care of this patient. I personally saw and examined the patient. I agree with most of the assessment and plan. Plan of care discussed with attending Dr. Leonardo. Nazario De Jesus MD PGY-2 Documentation for date of: 05/01/25 Subjective Subjective Interval history: Patient was seen and examined at bedside. No acute events took place overnight. Although patient has remained afebrile for the past 2 days, admitted to [facility] overnight. The swelling and pain in the right leg appears to be worse from yesterday, although the redness has improved. Patient has tenderness with palpation and weightbearing. -0.7 L imbalance of fluid ins and outs during the past 24h, WBC 9.1 CBC unremarkable. Pending lymphocyte subset count. Pending HIV 1 and 2 AG/AB results. Exam Vital Signs Temp Pulse Resp BP Pulse Ox O2 Del Method 98.2 F 76 18 108/56 L 98 Room Air 05/01/25 15:49 05/01/25 15:49 05/01/25 15:49 05/01/25 15:49 05/01/25 15:49 05/01/25 15:49 Narrative Exam General: AOx3, in mild distress, able to speak full sentences, [place]-speaking HEENT: NC/AT, mucous membranes moist, bilateral sclera anicteric Cardiovascular: regular rate and rhythm, S1/S2 present, no murmurs appreciated Pulmonary: clear to auscultation bilaterally, no rales/rhonchi/wheezes Abdominal: soft, non-tender, non-distended, no rebound/guarding, normal bowel sounds present Musculoskeletal: Right lower extremity showed patches of erythema with scattered violaceous hue extending from the right ankle to the medial thigh and groin area, 2+ circumferential non-pitting edema extending from the right ankle to the knee, distal function intact. There is marked warmth to Rt leg. Skin: warm and dry, intact, no rashes, Neuro: CN II-XII intact, no focal deficits Objective Labs 05/02/25 05:02 05/02/25 05:02 Labs: Laboratory Results - last 24 hr 05/01/25 05/01/25 04:30 08:30 WBC 9.1 RBC 4.77 Hgb 13.9 Hct 41.0 MCV 86 MCH 29.1 MCHC 33.9 RDW Std Deviation 40.7 Plt Count 182 Neut % (Auto) 54 Lymph % (Auto) 31 [place] % (Auto) 13 H Eos % (Auto) 1 Baso % (Auto) 0 Neut # (Auto) 4.9 Lymph # (Auto) 2.8 [place] # (Auto) 1.2 H Eos # (Auto) 0.1 Baso # (Auto) 0.0 Immature Gran # (Auto) 0.05 H Absolute Nucleated RBC 0.00 Immature Gran % 1 H Nucleated RBC % 0 Sodium 140 Potassium 4.0 Chloride 104 Carbon Dioxide 30.5 Anion Gap 6 L BUN 14 Creatinine 1.2 Estim Creat Clear Calc 77.6 eGFR > 60 BUN/Creatinine Ratio 12 Glucose 109 H D Calculated Osmolality 280 Calcium 8.5 Corrected Calcium 8.8 Total Bilirubin 0.7 AST 17 ALT 19 Alkaline Phosphatase 57 Total Protein 5.8 Albumin 3.6 Globulin 2.2 L Albumin/Globulin Ratio 1.6 Vancomycin Trough 8.8 Quality Measures Quality Measures none Assessment & Plan Assessment Current Active Medications: Generic Name Dose Route Start Last Admin Trade Name Paulo PRN Reason Stop Dose Admin Acetaminophen 650 mg 04/30/25 05:07 04/30/25 07:33 Acetaminophen 325 Mg Tablet PO 05/30/25 05:06 650 mg Q6H PRN Administration PAIN 1- 3 OR FEVER > 100.4 Biktarvy 50-200-25 0 ea 04/30/25 15:15 05/01/25 08:26 Mg PO 05/30/25 08:59 1 tablet DAILY TERESO Administration Heparin Sodium (Porcine) 5,000 unit 04/30/25 18:00 05/01/25 08:27 Heparin Sod Inj 5000 Unit/Ml Vial SC 05/14/25 17:59 5,000 unit Q12HR TERESO Administration Piperacillin/Tazobactam/Dextrose 3.375 gm in 50 mls @ 12.5 mls/hr 04/30/25 14:00 05/01/25 13:03 Zosyn IV 05/07/25 13:59 12.5 mls/hr Q8HR TERESO Administration Protocol Vancomycin HCl 200 mls @ 120 mls/hr 05/01/25 10:00 05/01/25 10:52 Vancomycin/Water 1gm Ivpb IV 05/08/25 09:59 120 mls/hr BID@1000,2200 TERESO Administration Protocol Morphine Sulfate 2 mg 04/30/25 05:07 04/30/25 23:58 Morphine Sulf Inj 4 Mg/Ml Vial IVP 05/05/25 05:06 2 mg Q4HR PRN Administration PAIN SCALE 7-10 (Severe Ondansetron HCl 4 mg 04/30/25 05:07 Ondansetron Inj 2 Mg/Ml Inj 2 Ml IVP 05/30/25 05:06 Q6H PRN NAUSEA OR VOMITING Protocol Pharmacy Consult 1 each 04/30/25 09:00 Vancomycin Pharmacy To Dose 1 Each Each IV 05/30/25 08:59 QDAY PRN CONSULT Sennosides 1 tab 04/30/25 05:07 Senna Tablet PO 05/30/25 05:06 QDAY PRN constipation Protocol Plan 49-year-old male with a history of HIV (diagnosed 10 years ago, on Biktarvy, but takes it intermittently) presenting with worsening painful swelling that has extended from his right foot to the medial thigh over the past 3 days. Patient admitted for cellulitis of right leg. #Cellulitis, right leg Presenting with worsening painful swelling that has extended from his right foot to the medial thigh over the past 3 days. Patient reports a subjective fever but denies chills, vomiting, or diarrhea. Patient mentions swelling began after being scratched by his friend's dog. The dog is vaccinated. Patient is unsure of his tetanus status, but he believes he is up-to-date with other vaccinations. On exam right lower extremity showed patches of erythema with scattered violaceous hue extending from the right ankle to the medial thigh, 2+ circumferential edema extending from the right ankle to the knee, distal function intact. Afebrile No WBC elevation In ED patient received Zosyn 3.375 g IV and vancomycin IV x 1 PT 10.8, INR 1.0 WNL. Hep A IgM Ab, Hep B surface antigen and core IgM antibody, and Hep C all non reactive. ? CT w/contrast RLE showed cellulitis in the right groin, medial thigh, and lateral lower leg (most severe). No soft tissue abscess. Negative for osteomyelitis. ? No sonographic evidence of DVT in the right lower extremity ? B Ctx negative after 24h ? ESR 30 (H), CRP 15.8 (H) Plan ? Vancomycin dosed by pharmacy and Zosyn IV 3.375g (04/30 - ) ? Follow-up blood cultures - Multimodal pain control with APAP for mild pain, and morphine 2mg for severe pain - Daily CBC, CMP #History of HIV, active While patient states that he took Biktarvy on the morning before ED presentation, he also says that he had taken it only once during the past month, and for a total of nearly 30 days during the past year for issues with insurance coverage, provider availability, and homelessness. Plan: ? ID, Dr Lane, consulted; appreciate recs - Biktarvy PO 50-200-25mg Qday - pending HIV 1&2 Ag/Ab testing ? HIV viral load ordered, send out - Pending lymphocyte subset count Health Maintenance: Diet: Regular GI prophylaxis: None DVT prophylaxis: Heparin 5000u SC every 12 hours Antibiotics: Cefazolin 1 g IV every 8 hours CODE STATUS: Full Disposition: [facility] This case was discussed with my attending physician, Dr. Leonardo, and senior resident, Dr Manuel. Michael Aldana, DO PGY I Disclaimer: This note was dictated by speech recognition. Minor errors in soybean specialties cook may be present due to voice recognition software. Attending Provider Attestation/Addendum I have seen and examined the patient. I was physically present for the vines portions of the services provided including history, physical exam, diagnosis, treatment plans and orders. I agree with assessment and plan of care as documented by residents. Even though this this note was carefully revised there may still be minor errors in soybean specialties cook due to voice recognition software. Abdon Leonardo MD
[2025-05-01] MEDS: MORPHINE SULF INJ 4 MG/ML VIAL 2 MG IVP (19:20)
[2025-05-01 19:41] VITALS: BP 111/50; PULSE 79; RESP 18; TEMP 37.4; O2SAT 97
[2025-05-02] VITALS: BP 97/56; PULSE 75; RESP 18; TEMP 36.7; O2SAT 95
[2025-05-02 04:00] VITALS: BP 112/54; PULSE 78; RESP 18; TEMP 36.7; O2SAT 96
[2025-05-02] MEDS: PIPER/TAZO 3.375 GM PREMIX 3.375 GM/50 ML BAG IV (05:21)
[2025-05-02] MEDS: ACETAMINOPHEN 325 MG TABLET 650 MG PO (05:26)
[2025-05-02 06:04] LABS: Basophils # (Auto) 0.0 Thou/mm3 (0.0-0.2); Basophils % (Auto) 1 % (0-2.5); Eosinophils # (Auto) 0.2 Thou/mm3 (0.0-0.5); Eosinophils % (Auto) 2 % (0-10); Hematocrit 40.5 % (41.0-53.0); Hemoglobin 13.5 g/dL (13.5-16.0); Immature Granulocytes Auto 0.11 Thou/mm3 (0.00-0.00); Lymphocytes # (Auto) 2.3 Thou/mm3 (1.0-4.8); Lymphocytes % (Auto) 29 % (10-50); Mean Corpuscular HGB Conc 33.3 g/dl (31.0-37.0); Mean Corpuscular Hemoglobin 28.8 pg (25.0-35.0); Mean Corpuscular Volume 86 fL (80-100); Monocytes # (Auto) 0.9 Thou/mm3 (0.0-0.8); Monocytes % (Auto) 11 % (0-12); Neutrophils # (Auto) 4.5 Thou/mm3 (1.8-7.7); Neutrophils % (Auto) 56 % (37-80); Nucleated Red Blood Cell # 0.00 Thou/mm3 (0.00-0.00); Nucleated Red Blood Cell % 0 /100 WBC (0); Platelet Count 191 Thou/mm3 (140-440); RDW Standard Deviation 40.6 fL (35.1-43.9); Red Blood Count 4.69 Miln/mm3 (4.50-5.90); White Blood Count 8.0 Thou/mm3 (3.8-10.6)
[2025-05-02 06:22] LABS: Alanine Aminotransferase 27 U/L (10-49); Albumin, Serum 3.7 gm/dL (3.5-5.0); Albumin/Globulin Ratio 1.4 (1.2-2.2); Alkaline Phosphatase 64 U/L (46-116); Anion Gap 6 (7-16); Aspartate Amino Transferase 24 U/L (0-34); BUN/Creatinine Ratio 9 Ratio (12-20); Bilirubin,Total 0.4 mg/dL (0.3-1.2); Blood Urea Nitrogen 10 mg/dL (9-23); Calcium 8.4 mg/dL (8.3-10.6); Calcium (Corrected) 8.6 mg/dL (8.5-10.1); Carbon Dioxide 29.0 mMol/L (20.0-31.0); Chloride 104 mMol/L (98-107); Creatinine (Component) 1.1 mg/dL (0.6-1.3); Estimated Creatinine Clearance 84.6 mL/min (>60); Globulin 2.6 gm/dL (2.3-3.5); Glucose 147 mg/dL (74-106); Osmolality,Calculated 279 (275-295); Potassium 4.0 mMol/L (3.4-5.1); Sodium 139 mMol/L (136-145); Total Protein 6.3 gm/dL (5.7-8.2); eGFR > 60 See Note
[2025-05-02 07:45] VITALS: BP 130/73; PULSE 66; RESP 16; TEMP 36.3; O2SAT 99
[2025-05-02] MEDS: BIKTARVY 50-200-25 MG PO (08:17)
[2025-05-02] MEDS: HEPARIN SOD INJ 5000 UNIT/ML VIAL SC (08:18)
--- NOTE | 2025-05-02 13:27 | PD.RESEVENT ---
Documentation for date of: 05/02/25 Event Note Event Note: Around 10:30am, patient spoke to nurse and expressed a desire to leave the hospital against medical advice. Patient was seen by physicians at bedside. Patient was informed of the risks associated with early discharge, including the potential for worsening infection, and other complications. Patient was counseled on the importance of continued medical care for cellulitis management. Despite this, patient insisted on leaving AGAINST MEDICAL ADVICE with the understanding of associated risks. Patient left the hospital without further complications. Patient was advised to finish the course of antibiotics that will be prescribed to patient?s pharmacy and to seek immediate medical care if infection worsen or if any complications arise. Return precaution given. Assessment and plan discussed with my attending physician Dr. Leonardo and Dr. Angel (PGY-2). Dr. Sosa (PGY-1) ? residential direct support professional
[2025-05-03 15:35] LABS: CD19 Percentage 12 % (6-29); CD19, Absolute 283 cells/uL (110-660); CD3 Percentage 83 % (57-85); CD3, Absolute 1969 cells/uL (840-3060); CD3-CD16+CD56+ % 4 % (4-25); CD3-CD16+CD56+ (Abs) 101 cells/uL (70-760); CD4 Percentage 37 % (30-61); CD4, Absolute 894 cells/uL (490-1740); CD4/CD8 Ratio 0.82 (0.86-5.00); CD8 Percentage 45 % (12-42); CD8, Absolute 1094 cells/uL (180-1170)
[2025-05-04 06:57] LABS: Lymphocytes, Absolute 2384 cells/uL (850-3900)
[2025-05-04 22:04] LABS: HIV 1 Antibody POSITIVE
[2025-05-05 06:38] LABS: HIV 2 Antibody NEGATIVE; HIV Ag/Ab, 4th Gen REPEATEDLY REACTIVE
[2025-05-05 11:55] LABS: HIV-1/2 Rapid Confirmation See Cmnt-Confrm=Pos
[2025-05-09 22:08] LABS: HIV-1 RNA, QN PCR 29 copies/mL
[2025-05-11 07:05] LABS: HIV Genotype* NOT DETECTED; HIV-1 RNA, QN PCR Log 1.46
== END 2025-05-02 10:10 | disposition left against medical advice (07) | DRG 383 ==
LOC: SERX 04-30 04:33 → SERHOLD 04-30 06:07 → S3SX 04-30 06:32
PROVIDERS: Admitting Provider Internal Medicine; Emergency Provider Emergency Medicine; Visit Provider Internal Medicine
DX: L03.115 Cellulitis of right lower limb (principal); L03.314 Cellulitis of groin; Z21 Asymptomatic human immunodeficiency virus [HIV] infection status; F17.200 Nicotine dependence, unspecified, uncomplicated; Z79.899 Other long term (current) drug therapy; Z53.29 Procedure and treatment not carried out because of patient's decision for other reasons
CPT/HCPCS: 36415; 73701; 80053; 80074; 80202; 80307; 81001; 83605; 84145; 85025; 85610; 85652; 86140; 86355; 86357; 86359; 86360; 86701; 86702; 86703; 87040; 87389; 87536; 87901; 93005; 93971; 96361; 96365; 96366; 96375; 99284; A4649; J0689; J1644; J2270; J2543; J3373; J3375; J7050; J7120; Q9967; A9270